=== PATIENT | female | born 1950 | race Caucasian/White ===

== ENCOUNTER 2025-05-09 01:49 | Outpatient (RCR) | payer MEDICARE, SELFPAY ==
[2025-05-09] MEDS: Normal Saline Flush 10 ML SYR IVP (08:15)
[2025-05-09 08:50] LABS: Abs Immature Grans 0.05 10^3/uL (0.0-0.06); HCT 40.7 % (36.0-46.0); HGB 13.0 g/dL (11.2-15.7); Immature Grans % 0.7 %; MCH 28.0 pg (27.0-33.0); MCHC 31.9 % (32.0-36.0); MCV 88 fL (80-95); MPV 10.1 fL (8.0-11.0); Platelet Count 315 10^3/uL (130-400); RBC 4.64 10^6/uL (3.93-5.22); RDW 12.8 % (11.7-14.6); RDW-SD 40.9 fL; WBC 7.34 10^3/uL (4.4-10.8)
[2025-05-09 09:19] LABS: ALT 79 U/L (14-59); AST 43 U/L (15-37); Albumin 3.8 g/dL (3.4-5.0); Alkaline Phosphatase 69 U/L (46-116); Anion Gap 9.9 mmol/L (3-11); BUN 14 mg/dL (7-18); Bilirubin, Total 0.3 mg/dL (0.2-1.0); CO2 27.1 mmol/L (21.0-32.0); Calcium 9.4 mg/dL (8.5-10.1); Chloride 100 mmol/L (98-107); Estimated GFR 91.83 (mL/min/1.73m2); Glucose 268 mg/dL (74-106); Potassium 3.9 mmol/L (3.5-5.1); Sodium 137 mmol/L (136-145); Total Protein 7.3 g/dL (6.4-8.2)
== END 2025-05-21 23:59 | disposition home or self-care (01) ==
LOC: INF 01:49
PROVIDERS: PCP Family Medicine; Visit Provider Nurse Practitioner Family
DX: C50.212 Malignant neoplasm of upper-inner quadrant of left female breast (principal); Z17.0 Estrogen receptor positive status [ER+]; Z45.2 Encounter for adjustment and management of vascular access device
CPT/HCPCS: 36591; 80053; 85025

== ENCOUNTER 2025-06-20 02:32 | Outpatient (RCR) | payer MEDICARE, SELFPAY ==
[2025-05-23 10:36] LABS: Abs Immature Grans 0.03 10^3/uL (0.0-0.06); HCT 39.9 % (36.0-46.0); HGB 13.1 g/dL (11.2-15.7); Immature Grans % 0.5 %; MCH 28.6 pg (27.0-33.0); MCHC 32.8 % (32.0-36.0); MCV 87 fL (80-95); MPV 10.2 fL (8.0-11.0); Platelet Count 320 10^3/uL (130-400); RBC 4.58 10^6/uL (3.93-5.22); RDW 13.1 % (11.7-14.6); RDW-SD 40.5 fL; WBC 5.93 10^3/uL (4.4-10.8)
[2025-05-23 10:50] LABS: ALT 66 U/L (14-59); AST 38 U/L (15-37); Albumin 3.7 g/dL (3.4-5.0); Alkaline Phosphatase 60 U/L (46-116); Anion Gap 9.2 mmol/L (3-11); BUN 12 mg/dL (7-18); Bilirubin, Total 0.2 mg/dL (0.2-1.0); CO2 26.8 mmol/L (21.0-32.0); Calcium 9.5 mg/dL (8.5-10.1); Chloride 101 mmol/L (98-107); Glucose 238 mg/dL (74-106); Potassium 3.7 mmol/L (3.5-5.1); Sodium 137 mmol/L (136-145); Total Protein 7.0 g/dL (6.4-8.2)
[2025-05-23 11:00] LABS: TSH (W/Ref FT4) 1.55 uIU/mL (0.36-3.74)
[2025-05-23 11:03] LABS: Hemoglobin A1C 8.5 % (<5.7)
[2025-05-23] MEDS: Normal Saline Flush 10 ML SYR IVP (11:06)
[2025-06-06 10:19] LABS: Abs Immature Grans 0.03 10^3/uL (0.0-0.06); HCT 38.2 % (36.0-46.0); HGB 12.4 g/dL (11.2-15.7); Immature Grans % 0.5 %; MCH 28.4 pg (27.0-33.0); MCHC 32.5 % (32.0-36.0); MCV 87 fL (80-95); MPV 10.1 fL (8.0-11.0); Platelet Count 313 10^3/uL (130-400); RBC 4.37 10^6/uL (3.93-5.22); RDW 14.0 % (11.7-14.6); RDW-SD 43.6 fL; WBC 5.91 10^3/uL (4.4-10.8)
[2025-06-06 10:47] LABS: ALT 71 U/L (14-59); AST 40 U/L (15-37); Albumin 3.8 g/dL (3.4-5.0); Alkaline Phosphatase 56 U/L (46-116); Anion Gap 9.3 mmol/L (3-11); BUN 10 mg/dL (7-18); Bilirubin, Total 0.3 mg/dL (0.2-1.0); CO2 26.7 mmol/L (21.0-32.0); Calcium 9.3 mg/dL (8.5-10.1); Chloride 103 mmol/L (98-107); Glucose 145 mg/dL (74-106); Potassium 3.9 mmol/L (3.5-5.1); Sodium 139 mmol/L (136-145); TSH 0.43 uIU/mL (0.36-3.74); Total Protein 7.0 g/dL (6.4-8.2)
[2025-06-06] MEDS: Normal Saline Flush 10 ML SYR IVP (11:34)
[2025-06-20] MEDS: Normal Saline Flush 10 ML SYR IVP (10:17)
[2025-06-20 10:31] LABS: Abs Immature Grans 0.07 10^3/uL (0.0-0.06); HCT 38.3 % (36.0-46.0); HGB 12.6 g/dL (11.2-15.7); Immature Grans % 1.0 %; MCH 28.5 pg (27.0-33.0); MCHC 32.9 % (32.0-36.0); MCV 87 fL (80-95); MPV 10.0 fL (8.0-11.0); Platelet Count 329 10^3/uL (130-400); RBC 4.42 10^6/uL (3.93-5.22); RDW 14.2 % (11.7-14.6); RDW-SD 44.5 fL; WBC 6.95 10^3/uL (4.4-10.8)
[2025-06-20 10:44] LABS: ALT 70 U/L (14-59); AST 34 U/L (15-37); Albumin 3.6 g/dL (3.4-5.0); Alkaline Phosphatase 68 U/L (46-116); Anion Gap 10.0 mmol/L (3-11); BUN 13 mg/dL (7-18); Bilirubin, Total 0.2 mg/dL (0.2-1.0); CO2 26.0 mmol/L (21.0-32.0); Calcium 9.3 mg/dL (8.5-10.1); Chloride 100 mmol/L (98-107); Glucose 189 mg/dL (74-106); Potassium 4.2 mmol/L (3.5-5.1); Sodium 136 mmol/L (136-145); Total Protein 7.1 g/dL (6.4-8.2)
== END 2025-06-20 23:59 | disposition home or self-care (01) ==
LOC: INF 02:32
PROVIDERS: Student in an Organized Health Care Education/Training Program; PCP Family Medicine; Visit Provider Nurse Practitioner Family
DX: C50.212 Malignant neoplasm of upper-inner quadrant of left female breast (principal); E11.9 Type 2 diabetes mellitus without complications; Z45.2 Encounter for adjustment and management of vascular access device
CPT/HCPCS: 36591; 80053; 82043; 82570; 83036; 84439; 84443; 85025

== ENCOUNTER 2025-07-18 02:20 | Outpatient (RCR) | payer MEDICARE, SELFPAY ==
[2025-07-04] MEDS: Normal Saline Flush 10 ML SYR IVP (09:34)
[2025-07-04 10:19] LABS: Abs Immature Grans 0.08 10^3/uL (0.0-0.06); HCT 38.4 % (36.0-46.0); HGB 12.7 g/dL (11.2-15.7); Immature Grans % 1.0 %; MCH 29.6 pg (27.0-33.0); MCHC 33.1 % (32.0-36.0); MCV 90 fL (80-95); MPV 10.5 fL (8.0-11.0); Platelet Count 340 10^3/uL (130-400); RBC 4.29 10^6/uL (3.93-5.22); RDW 14.9 % (11.7-14.6); RDW-SD 47.9 fL; WBC 7.98 10^3/uL (4.4-10.8)
[2025-07-04 10:37] LABS: ALT 61 U/L (14-59); AST 27 U/L (15-37); Albumin 3.6 g/dL (3.4-5.0); Alkaline Phosphatase 68 U/L (46-116); Anion Gap 10.4 mmol/L (3-11); BUN 18 mg/dL (7-18); Bilirubin, Total 0.2 mg/dL (0.2-1.0); CO2 26.6 mmol/L (21.0-32.0); Calcium 9.3 mg/dL (8.5-10.1); Chloride 102 mmol/L (98-107); Estimated GFR 91.26 (mL/min/1.73m2); Glucose 242 mg/dL (74-106); Potassium 4.1 mmol/L (3.5-5.1); Sodium 139 mmol/L (136-145); Total Protein 6.8 g/dL (6.4-8.2)
[2025-07-18] MEDS: Normal Saline Flush 10 ML SYR IVP (10:45)
[2025-07-18 11:16] LABS: Abs Immature Grans 0.11 10^3/uL (0.0-0.06); HCT 38.5 % (36.0-46.0); HGB 12.5 g/dL (11.2-15.7); Immature Grans % 1.4 %; MCH 28.7 pg (27.0-33.0); MCHC 32.5 % (32.0-36.0); MCV 88 fL (80-95); MPV 10.5 fL (8.0-11.0); Platelet Count 330 10^3/uL (130-400); RBC 4.36 10^6/uL (3.93-5.22); RDW 14.9 % (11.7-14.6); RDW-SD 47.7 fL; WBC 7.65 10^3/uL (4.4-10.8)
[2025-07-18 11:47] LABS: ALT 53 U/L (14-59); AST 27 U/L (15-37); Albumin 3.7 g/dL (3.4-5.0); Alkaline Phosphatase 68 U/L (46-116); Anion Gap 10.0 mmol/L (3-11); BUN 14 mg/dL (7-18); Bilirubin, Total 0.3 mg/dL (0.2-1.0); CO2 28.0 mmol/L (21.0-32.0); Calcium 10.0 mg/dL (8.5-10.1); Chloride 99 mmol/L (98-107); Estimated GFR 98.97 (mL/min/1.73m2); Glucose 142 mg/dL (74-106); Potassium 4.0 mmol/L (3.5-5.1); Sodium 137 mmol/L (136-145); TSH 2.37 uIU/mL (0.36-3.74); Total Protein 7.3 g/dL (6.4-8.2)
== END 2025-07-21 23:59 | disposition home or self-care (01) ==
LOC: INF 02:20
PROVIDERS: PCP Family Medicine; Visit Provider Nurse Practitioner Family
DX: C50.212 Malignant neoplasm of upper-inner quadrant of left female breast (principal); E11.9 Type 2 diabetes mellitus without complications; Z17.0 Estrogen receptor positive status [ER+]; Z79.899 Other long term (current) drug therapy; Z45.2 Encounter for adjustment and management of vascular access device
CPT/HCPCS: 36591; 80053; 84439; 84443; 85025

== ENCOUNTER → 2025-08-28 00:31 | Outpatient (CLI) | payer MEDICARE, SELFPAY ==
--- NOTE | 2025-08-28 13:32 | DI.US_ITS ---
APPROVED REPORT EXAM: Comprehensive 2D, Doppler, and color-flow Echocardiogram Patient Location: Out-Patient Adoption Manager: Mikayla Bright RDCS (AE) Indications: LT breast CA, Medical management, Monitor cardiotoxic drug therapy Other Information Study Quality: Adequate Conclusion Normal left ventricular wall thickness and chamber size. Ejection fraction is 60%. Wall motion is normal Normal right ventricular size and function Both atria are normal in size There is no significant valvular disease Wall motion Left Ventricle The left ventricle is normal size. The left ventricular systolic function is normal. The left ventricular ejection fraction is within the normal range. GLS is - 14% There is normal left ventricular wall thickness. There is normal LV segmental wall motion. There is no ventricular septal defect visualized. LVEF is 60%. Right Ventricle The right ventricle is normal size. The right ventricular systolic function is normal. Atria The left atrium size is normal. The right atrium size is normal. The interatrial septum is intact with no evidence for an atrial septal defect. Aortic Valve The aortic valve is normal in structure. Aortic valve is trileaflet. There is no aortic valvular stenosis. No aortic regurgitation is present. Mitral Valve The mitral valve is normal in structure. No evidence of mitral valve stenosis. Trace mitral regurgitation. Tricuspid Valve The tricuspid valve is normal in structure. There is no tricuspid valve stenosis. Trace tricuspid regurgitation. The RVSP is 25.4_ mmHg. Pulmonic Valve The pulmonary valve is normal in structure. There is no pulmonic valvular stenosis. There is no pulmonic valvular regurgitation. Great Vessels The aortic root is normal in size. The ascending aorta is mildly dilated. Aortic arch is normal in caliber. IVC is normal in size and collapses >50% with inspiration. Pericardium There is no pericardial effusion. 2D Dimensions IVSD d PLAX 1.12 cm F: 0.6-1.0 Ao Root d 3.04 cm F: 2.7 - 3.3 LVPW d PLAX 1.15 cm F: 0.6 - 1.0 Ao Asc Diam d 3.20 cm F: 2.3 - 3.1 LVID d PLAX 4.22 cm F: 3.8 - 5.2 LVDs 2.90 cm F: 2.2 - 3.5 LV EF Teichholz 59.7 % FS 31.46 % LV EDV (Teich) 79.4 mL LV ESV (Teich) 32.0 mL M-Mode TAPSE 3.36 cm (M/F) >1.7 Auto EF LV EDV A4C 78.5 mL LV EDV A2C 91.0 mL LV EDV BP 85.2 mL LV ESV A4C 32.0 mL LV ESV A2C 34.0 mL LV ESV BP 32.8 mL LVEF(%) A4C 59.2 % LVEF(%) A2C 62.7 % LVEF(%) BP 61.5 % LV SV A4C 46.5 ml LV SV A2C 57.0 ml LV SV BP 52.4 ml LV CO A4C 3.7 L/min LV CO A2C 4.6 L/min LV CO BP 4.1 L/min HR A4C 80.18 BPM HR A2C 80.18 BPM LV EDV Index (BP) LV Strain Long Pk Overal Avg (s) 13.97 LA Volume LA Length A4C 4.3 cm LA Length A2C 4.0 cm LA Area A4C s 11.46 cm2 LA Area A2C s 11.88 cm2 LA Vol A4C A-L 25.74 mL LA Vol A2C A-L 29.64 mL LA Vol Biplane A-L 28.6 mL LA Vol/BSA A4C A-L LA Vol/BSA A2C A-L LA Vol/BSA BP A-L 16.4 mL/m2 LA Vol A4C MOD 22.3 mL LA Vol A2C MOD 28.2 mL LA Vol BP MOD 25.7 mL RA Volume RA Area A4C 9.0 cm2 RA ESV A4C (A-L) 18.0mL RA Vol/BSA A4C A-L RA Length A4C 3.8 cm RA ESV A4C (MOD) 16.7mL LV Diastology MV E/E' MED 9.27 (<14) MV A Vmax 0.95 (0.4-1.3 m/s) MV E' lateral 0.097 (>0.1 m/s) E/A Ratio 0.85 MV E/E' LAT 8.93 (<14) MV E' Average 0.095 m/s MV E/E'(average) 9.10 Aortic Valve AoV Vmax 1.31 m/s LVOT Vmax 1.10 m/s AoV Peak Grad 6.9 mmHg LVOT Peak Grad 4.8 mmHg AoV Area (Vmax) 2.75 cm2 LVOT VTI 0.246 m AoV VTI 0.298 m LVOT Mean Grad 2.3 mmHg AoV Mean Richard. 0.88 m/s LVOT SV 80.65 mL AoV Mean Grad 3.5 mmHg LVOT Diam s 2.00 cm AoV Area (VTI) 2.71 cm2 AV Regurg Peak Gr. 6.88 mmHg Velocity Ratio 0.84 Mitral Valve MV DT 256 (160-240 msec) MV Vmax TIPS 0.92 m/s MV Mean Grad 1.4 (<2mmHg) MV VTI 0.262 m Pulmonary Valve PV Vmax 1.11 (0.5-1.5 m/s) RVOT Vmax 0.77 m/s PV Peak Grad 5.0 mmHg RVOT Peak Gr. 2.4 mmHg PV Mean Richard 0.77 m/s RVOT VTI 0.163 m PV Mean Grad 2.7 mmHg RVOT Mean Gr. 1.4 mmHg Tricuspid Valve RA Pressure 3.00 mmHg TR Vmax 2.37 m/s TV S' 0.21 m/s TR Peak Grad 22.4 mmHg RVSP (TR) 25.4 mmHg
== END ==
PROVIDERS: PCP Family Medicine; Visit Provider Nurse Practitioner Family
DX: C50.212 Malignant neoplasm of upper-inner quadrant of left female breast (principal); Z79.899 Other long term (current) drug therapy; Z51.81 Encounter for therapeutic drug level monitoring; Z17.0 Estrogen receptor positive status [ER+]
CPT/HCPCS: 93306